=== PATIENT | male | born 1975 | race Caucasian/White ===

== ENCOUNTER 2023-05-30 20:41 | Emergency (ER) | payer SELFPAY ==
[~2023-05-30] VITALS: Ht 165.1 cm; Wt 100.2 kg
[2023-05-30 22:49] VITALS: TEMP 98.6
[2023-05-30 23:39] VITALS: BP 142/88; O2SAT 97
== END 2023-05-30 23:53 | disposition home or self-care (01) ==
LOC: ER 20:47
DX: F41.9 Anxiety disorder, unspecified (principal); F23 Brief psychotic disorder; F31.9 Bipolar disorder, unspecified